=== PATIENT | male | born 1940 | race Caucasian/White ===

== ENCOUNTER 2025-01-13 17:25 | Observation (INO) ==
--- NOTE | 2025-01-13 17:47 | EKG ---
Test Reason : dyspnea Blood Pressure : */* mmHG Vent. Rate : 144 BPM Atrial Rate : * BPM P-R Int : * ms QRS Dur : 110 ms QT Int : 352 ms P-R-T Axes : * -36 15 degrees QTc Int : 545 ms Atrial fibrillation with rapid ventricular response Left axis deviation Abnormal ECG When compared with ECG of 07-JAN-2025 10:43, Atrial fibrillation has replaced Sinus rhythm Vent. rate has increased BY 69 BPM Criteria for Inferior infarct are no longer present Nonspecific T wave abnormality no longer evident in Lateral leads Confirmed by Simón Fitzpatrick MD ([id number]) on 01/14/2025 5:52:57 AM Referred By: Confirmed By: Simón Fitzpatrick MD
[2025-01-13 18:00] LABS: MEAN PLATELET VOLUME 10.2 fL (7.4-11.0); RED CELL DISTRIBUTION WIDTH 14.0 % (11.6-16.5)
--- NOTE | 2025-01-13 18:00 | DR.SOBA ---
HPI Time Seen Time Seen by Provider: 01/13/25 17:46 Primary Care Physician Primary Care Physician: Geovanny Hernandez Chief Complaint Doctors Comments: 84 yo M, hx of CAD, no hx of afib or CHF, c/o dyspnea for the past 6 days. Denies chest pain or palpitations. Denies fever. Denies other complaints. Chief Complaint:: Patient states that he has been short of breath since 01/07/2025 when he had his endoscopy. He states that his oxygen is always good, but he still feels short of breath. COVID-19 Coronavirus risk:travel/contact w/high risk person: No Has patient experienced Coronavirus symptoms: No Source History Provided: Patient Mode of Arrival Mode of Arrival: Ambulatory Timing Onset of Chief Complaint: 01/07/25 PMH PMH Past Medical History: Yes Past Medical History: Diabetes, Dyslipidemia, GERD, Hypertension, Kidney Stones and [place] Past Surgical History: No Surgical History: Angioplasty/Stents and Other Family History History of Family Medical Conditions: Yes Family Medical History: Diabetes Mellitus, Cancer, [place], Heart Failure and Hypertension Social History Does patient currently use any type of tobacco product: No Have you used tobacco products in the last 12 months: No Type of Tobacco Use: None Does any household member use tobacco: No Alcohol Use: None Do you use any recreational Drugs:: No Lives With: Family Lives Where: Home Travel Risk Coronavirus risk:travel/contact w/high risk person: No Has patient experienced Coronavirus symptoms: No Infectious screening In the last 2 months have you had wt loss of >10#?: NO Have you had fever, night sweats or hemotysis?: No Have you traveled outside the country in the last 6 months?: No Isolation: Standard ROS Review of Systems Respiratoy: Short of Breath All Other Systems: Reviewed and Negative PE Vital Signs Vitals: Vital Signs Temperature 98.2 F Pulse Rate 95 Pulse Rate 92 Pulse Rate 88 Pulse Rate 81 Pulse Rate 83 Pulse Rate 82 Pulse Rate 80 Pulse Rate 110 Pulse Rate 118 Pulse Rate 96 Pulse Rate 87 Pulse Rate 120 Pulse Rate 130 Pulse Rate 126 Respiratory Rate 31 Respiratory Rate 28 Respiratory Rate 26 Respiratory Rate 32 Respiratory Rate 37 Respiratory Rate 25 Respiratory Rate 21 Respiratory Rate 20 Respiratory Rate 25 Respiratory Rate 23 Respiratory Rate 26 Respiratory Rate 42 Respiratory Rate 25 Respiratory Rate 18 Blood Pressure 185/96 Blood Pressure 147/79 Blood Pressure 182/77 Blood Pressure 161/79 Blood Pressure 166/82 Blood Pressure 162/98 Blood Pressure 172/105 O2 Sat by Pulse Oximetry 92 O2 Sat by Pulse Oximetry 90 O2 Sat by Pulse Oximetry 91 O2 Sat by Pulse Oximetry 91 O2 Sat by Pulse Oximetry 91 O2 Sat by Pulse Oximetry 91 O2 Sat by Pulse Oximetry 90 O2 Sat by Pulse Oximetry 92 O2 Sat by Pulse Oximetry 91 O2 Sat by Pulse Oximetry 89 O2 Sat by Pulse Oximetry 91 O2 Sat by Pulse Oximetry 92 O2 Sat by Pulse Oximetry 94 General Limitations: No Limitations General Appearance: Alert and In No Apparent Distress Head Head Exam: Normal Inspection Eyes Eye exam: Normal Appearance ENT ENT Exam: Normal Exam Neck Neck Exam: Normal Inspection Chest Chest Inspection: Normal Inspection Respiratory Respiratory Exam: Normal Lung Sounds Bilat Respiratory Exam: Bilateral: Clear to Auscultation Cardiovascular Cardiovascular Exam: Tachycardia and Irregular Rhythm (atrial fibrillation with RVR, rate ~140-150 bpm) Abdominal Exam Abdominal Exam: Normal Inspection, Normal Bowel Sounds and Soft Extremities Extremities Exam: Normal Inspection Back Back Exam: Normal Inspection Neurologic Neurological Exam: Alert and Oriented X3 Psychiatric Psychiatric Exam: Normal Affect and Normal Mood Skin Skin Exam: Warm, Dry, Intact and Normal Color ROR Labs Reviewed Laboratory Results Reviewed?: Yes 01/13/25 17:40 01/13/25 17:40 Laboratory: WBC 6.5 X10^3/uL (3.6-10.0) 01/13/25 17:40 RBC 4.13 X10^6/uL (4.7-6.0) L 01/13/25 17:40 Hgb 13.4 g/dL (13.5-18.0) L 01/13/25 17:40 Hct 39.6 % (42.0-54.0) L 01/13/25 17:40 MCV 95.8 fL (80.0-100.0) 01/13/25 17:40 MCH 32.4 pg (27.0-34.0) 01/13/25 17:40 MCHC 33.8 g/dL (33.0-35.0) 01/13/25 17:40 RDW 14.0 % (11.6-16.5) 01/13/25 17:40 Plt Count 177 X10^3/uL (150.0-450.0) 01/13/25 17:40 MPV 10.2 fL (7.4-11.0) 01/13/25 17:40 Neut % (Auto) 73.1 % (42.0-75.0) 01/13/25 17:40 Lymph % (Auto) 12.4 % (21.0-51.0) L 01/13/25 17:40 [place] % (Auto) 8.4 % (0.0-13.0) 01/13/25 17:40 Eos % (Auto) 5.1 % (0.9-2.9) H 01/13/25 17:40 Baso % (Auto) 1.0 % (0.2-1.0) 01/13/25 17:40 Neut # (Auto) 4.8 x10^3/uL (2.2-4.8) 01/13/25 17:40 Lymph # (Auto) 0.8 X10^3/uL (1.3-2.9) L 01/13/25 17:40 [place] # (Auto) 0.5 x10^3/uL (0.3-0.8) 01/13/25 17:40 Eos # (Auto) 0.3 x10^3/uL (0.0-0.2) H 01/13/25 17:40 Baso # (Auto) 0.1 X10^3/uL (0.0-0.1) 01/13/25 17:40 Absolute Nucleated RBC 0.1 /100WBC 01/13/25 17:40 PT 15.5 SECONDS (11.8-14.3) 01/13/25 17:40 INR Target Range - 01/13/25 17:40 INR 1.21 (0.8-1.3) 01/13/25 17:40 APTT 28.7 SECONDS (22.9-36.5) 01/13/25 17:40 PTT Comment - 01/13/25 17:40 Sodium 136 mmol/L (136-145) 01/13/25 17:40 Corrected Sodium 137 mmol/L (136-145) 01/13/25 17:40 Potassium 3.7 mmol/L (3.5-5.1) 01/13/25 17:40 Chloride 101 mmol/L (98-107) 01/13/25 17:40 Carbon Dioxide 24.5 mmol/L (21-32) 01/13/25 17:40 BUN 17 mg/dL (7-18) 01/13/25 17:40 Creatinine 1.35 mg/dL (0.70-1.30) H 01/13/25 17:40 Est GFR (MDRD) Af Amer > 60 (>60) 01/13/25 17:40 Est GFR (MDRD) Non-Af 54 (>60) L 01/13/25 17:40 Glucose 128 mg/dL (65-99) H 01/13/25 17:40 Calcium 8.9 mg/dL (8.5-10.1) 01/13/25 17:40 Corrected Calcium TNP 01/13/25 17:40 Magnesium 2.1 mg/dL (2.0-2.9) 01/13/25 17:40 Total Bilirubin 0.90 mg/dL (0.2-1.0) 01/13/25 17:40 AST 19 Units/L (15-37) 01/13/25 17:40 ALT 15 Units/L (12-78) 01/13/25 17:40 Alkaline Phosphatase 114 Units/L (46-116) 01/13/25 17:40 Creatine Kinase 41 Units/L (39-308) 01/13/25 17:40 Troponin I High Sens 52.0 ng/L (4.0-60.0) 01/13/25 20:05 B-Natriuretic Peptide 679 pg/mL (0-79) H 01/13/25 17:40 Total Protein 7.4 g/dL (6.4-8.2) 01/13/25 17:40 Albumin 3.7 g/dL (3.4-5.0) 01/13/25 17:40 Globulin 3.7 g/dL (2.5-4.5) 01/13/25 17:40 Albumin/Globulin Ratio 1.0 Ratio (1.1-2.1) L 01/13/25 17:40 SARS-CoV-2 (PCR) Negative (NEGATIVE) 01/13/25 19:31 Influenza Type A (PCR) Negative (NEGATIVE) 01/13/25 19:31 Influenza Type B (PCR) Negative (NEGATIVE) 01/13/25 19:31 RSV (PCR) Negative (NEGATIVE) 01/13/25 19:31 Opioid Opioid Risk Tool Age (Edilson box if 16-45): No History of Preadolescent Sexual Abuse: No Total: 0 Total Score Risk Category: Low Risk Copyright: Everardo WHITTINGTON predicting aberrant behaviors Discharge Plan Diagnosis Discharge Problem: Atrial fibrillation, new onset, Atrial fibrillation with rapid ventricular response, Congestive heart failure Discharge Plan Patient Disposition: ADMITTED INPATIENT Condition: Stable Prescriptions: No Action tizanidine 2 mg tablet 2 mg PO BID PRN (Reason: pain) potassium chloride 10 mEq tablet extended release 10 meq PO QDAY tamsulosin 0.4 mg capsule 0.4 mg PO QDAY alfuzosin 10 mg tablet extended release 24 hr 10 mg PO BID cefuroxime axetil 500 mg tablet 500 mg PO BID metformin 500 mg tablet 500 mg PO QDAY clopidogrel 75 mg tablet 75 mg PO QDAY lovastatin 10 mg tablet 10 mg PO QDAY pantoprazole 40 mg tablet,delayed release (DR/EC) 40 mg PO QDAY furosemide 40 mg tablet 40 mg PO QDAY lactulose [Constulose] 10 gram/15 mL solution 15 ml PO QDAY nitroglycerin 0.4 mg tablet, sublingual 0.4 mg sublingual Q5M PRN (Reason: Chest Pain) Health Concerns: Post Hospitalization: new medications and changes needed to prevent readmission or further decline. Pt educated and given instructions on all concerns. Plan of Treatment: Continue with present treatment and follow up plan. Pt is to keep follow up appointment as instructed and take medications as ordered. Orders to Discharge Patient Discharge Orders: Transfer (Routine); Ordered 01/13/25 Ordered By: Lester Osborne Follow ups/Referrals Follow ups/Referrals: [facility],None [STAFF PHYSICIAN] - 3 days Instructions Stand Alone Forms: Find Help Web Site, Post Hospital Follow Up Care Print Language: URDU Provider Note Additional Notes spoke with Dr Solano who accepts pt at this time.
[2025-01-13 18:03] LABS: INR 1.21 (0.8-1.3)
[2025-01-13] MEDS: CARDIZEM INJ 50 MG VIAL IVP ONE ×2 (18:09→18:56)
[2025-01-13 18:10] LABS: COR NA(FOR HYPERGLY) 137 mmol/L (136-145); CREATININE 1.35 mg/dL (0.70-1.30); eGFR NON BLACK RACES 54 (>60)
[2025-01-13] MEDS: NS 1,000 ML IV 1,000 ML IV SCH (18:13)
--- NOTE | 2025-01-13 21:36 | RAD ---
EXAM: CHEST, 1 VIEW HISTORY: Shortness of Breath; COMPARISON: September 18, 2024 FINDINGS: Mild CHF. No pneumothorax or effusion. Cardiomegaly The bones are unremarkable. IMPRESSION: 1. CHF THIS IS AN ELECTRONICALLY VERIFIED FINAL REPORT 01/13/2025 9:32 PM - Electronically signed by Sarina Delgado MD
[2025-01-13] MEDS ORDERED: CARDIZEM INJ 125 MG VIAL 125 MG in NS 100 ML IV 100 ML IV PRN (21:37)
[2025-01-13] MEDS: ELIQUIS PO SCH (21:41)
[2025-01-13] MEDS: LASIX IVP SCH (21:42)
[2025-01-13] MEDS: CARDIZEM INJ 125 MG VIAL 125 MG in NS 100 ML IV 100 ML IV PRN (21:50)
[2025-01-13] MEDS ORDERED: CONSULT PHARMACY - POTASSIUM & MAGNESIUM XX SCH (22:15)
[2025-01-13] MEDS ORDERED: ZOFRAN INJ 4 MG VIAL IVP PRN (22:15)
[2025-01-13] MEDS ORDERED: TYLENOL 325 MG TAB PO PRN (22:15)
[2025-01-13] MEDS ORDERED: ULTRAM PO PRN (22:15)
[2025-01-13] MEDS ORDERED: NORCO 5/325 MG TAB PO PRN (22:15)
[2025-01-13] MEDS ORDERED: TIZANIDINE 2 MG PO PRN (22:15)
[2025-01-13] MEDS: TOPROL XL PO SCH (22:19)
--- NOTE | 2025-01-13 22:23 | EKG ---
Test Reason : dyspnea, atrial fibrillation with RVR Blood Pressure : */* mmHG Vent. Rate : 82 BPM Atrial Rate : * BPM P-R Int : * ms QRS Dur : 116 ms QT Int : 404 ms P-R-T Axes : * -17 40 degrees QTc Int : 472 ms baseline artifact makes difficult but suspect NSR/PVCs Minimal voltage criteria for LVH, may be normal variant ( [place] product ) Inferior infarct , age undetermined Abnormal ECG When compared with ECG of 13-JAN-2025 17:44, (Unconfirmed) Atrial fibrillation is gone Vent. rate has decreased BY 62 BPM Nonspecific T wave abnormality now evident in Lateral leads Confirmed by Simón Fitzpatrick MD ([id number]) on 01/14/2025 5:52:26 AM Referred By: Confirmed By: Simón Fitzpatrick MD
[2025-01-13 22:54] VITALS: BMI 32.6
[2025-01-14 05:40] LABS: MEAN PLATELET VOLUME 9.6 fL (7.4-11.0); RED CELL DISTRIBUTION WIDTH 13.9 % (11.6-16.5)
[2025-01-14 06:03] LABS: COR CA(FOR HYPOALB) 9.1 mg/dL (8.5-10.1); CREATININE 1.22 mg/dL (0.70-1.30); eGFR NON BLACK RACES > 60 (>60)
[2025-01-14] MEDS ORDERED: CONSULT PHARMACY - POTASSIUM & MAGNESIUM XX SCH (07:00)
--- NOTE | 2025-01-14 07:57 | RAD ---
EXAM: CHEST, 1 VIEW HISTORY: PULMONARY EDEMA; NV, HTN, DM, GERD, KIDNEY STONES SHX: NONE COMPARISON: No relevant prior studies were available for comparison at the time of interpretation. TECHNIQUE: CHEST, 1 VIEW FINDINGS: Chest: Lines and tubes: Cardiac leads overlie the chest. Mediastinum: Cardiomegaly. Pulmonary vessels: There is pulmonary vascular congestion. Lung covarrubias: No suspicious airspace opacity. Pleura: No effusion. No pneumothorax. Bones and soft tissues: No acute osseous or soft tissue abnormality. IMPRESSION: 1. Findings suggest increased volume status THIS IS AN ELECTRONICALLY VERIFIED FINAL REPORT 01/14/2025 7:53 AM - Electronically signed by Ricki Odonnell MD
[2025-01-14] MEDS: TOPROL XL PO ONE ×2 (08:41→09:42)
[2025-01-14] MEDS: NS 100 ML IV 100 ML ONE (08:41)
[2025-01-14] MEDS: CARDIZEM INJ 125 MG VIAL ONE (08:41)
[2025-01-14] MEDS ORDERED: PLAVIX PO SCH (09:00)
[2025-01-14] MEDS: ASPIRIN EC 81 MG PO SCH (09:32)
[2025-01-14] MEDS: PROTONIX TAB 40 MG PO SCH (09:32)
[2025-01-14] MEDS: LASIX PO SCH (09:32)
[2025-01-14] MEDS: K-DUR TAB 20 MEQ PO SCH (09:32)
[2025-01-14] MEDS: FLOMAX PO SCH (09:32)
[2025-01-14] MEDS: GLUCOPHAGE PO SCH (09:34)
[2025-01-14] MEDS: ZANAFLEX PO PRN (09:34)
[2025-01-14] MEDS: TOPROL XL PO SCH (09:37)
[2025-01-14] MEDS: CHRONULAC PO SCH (09:41)
[2025-01-14] MEDS: CEFTIN PO SCH (09:41)
[2025-01-14] MEDS: KLOR-CON 10 MEQ TAB PO SCH (09:41)
[2025-01-14] MEDS: GLUCOPHAGE ONE (09:41)
[2025-01-14] MEDS: LIPITOR TAB 10 MG PO SCH (21:12)
[2025-01-15 04:25] VITALS: BP 125/74; PULSE 77; RESP 20; TEMP 98; O2SAT 93
[2025-01-15 05:39] LABS: MEAN PLATELET VOLUME 10.2 fL (7.4-11.0); RED CELL DISTRIBUTION WIDTH 14.0 % (11.6-16.5)
[2025-01-15 05:46] LABS: COR CA(FOR HYPOALB) 9.3 mg/dL (8.5-10.1); CREATININE 1.36 mg/dL (0.70-1.30); eGFR NON BLACK RACES 53 (>60)
[2025-01-15] MEDS ORDERED: CONSULT PHARMACY - POTASSIUM & MAGNESIUM XX SCH (07:00)
[2025-01-15] MEDS ORDERED: GLUCOPHAGE ONE (08:31)
[2025-01-15] MEDS ORDERED: TOPROL XL PO ONE (08:31)
[2025-01-15] MEDS: K-DUR TAB 20 MEQ PO SCH (08:37)
== END 2025-01-15 08:50 | disposition home or self-care (01) ==
LOC: SUPCPDRO → ER 17:25 → MED/SURG 17:25
PROVIDERS: ADMIT Obstetrics & Gynecology Obstetrics; ATTEND Obstetrics & Gynecology Obstetrics
DX: R53.1 Weakness; D64.89 Other specified anemias; R00.0 Tachycardia, unspecified; E78.5 Hyperlipidemia, unspecified; I48.91 Unspecified atrial fibrillation; K21.9 Gastro-esophageal reflux disease without esophagitis; I25.2 Old myocardial infarction; R06.02 Shortness of breath; R53.83 Other fatigue; Z03.818 Encounter for observation for suspected exposure to other biological agents ruled out; R94.31 Abnormal electrocardiogram [ECG] [EKG]; R94.4 Abnormal results of kidney function studies; R79.89 Other specified abnormal findings of blood chemistry; I50.9 Heart failure, unspecified; E11.65 Type 2 diabetes mellitus with hyperglycemia; R06.09 Other forms of dyspnea; I11.0 Hypertensive heart disease with heart failure